=== PATIENT | female | born 1970 | race Caucasian/White ===

== ENCOUNTER 2019-03-11 17:22 | Emergency (ER) | payer OTHER ==
[~2019-03-11] VITALS: Ht 165.1 cm; Wt 59.0 kg
[2019-03-11] MEDS ORDERED: RASUVO 3030 MG/0.6 SUBQ (17:40)
[2019-03-11] MEDS ORDERED: FOLIC ACID1 MG PO (17:41)
[2019-03-11 18:12] LABS: ABSOLUTE BASOPHILS 0.1 thou/uL (0.0-0.2); ABSOLUTE EOSINOPHILS 0.2 thou/uL (0.0-0.7); ABSOLUTE LYMPHOCYTES 0.6 thou/uL (0.8-5.3); ABSOLUTE MONOCYTES 0.6 thou/uL (0.0-1.2); ABSOLUTE NEUTROPHILS 3.9 thou/uL (1.6-8.1); BASOPHILS 1.1 %; EOSINOPHILS 3.2 %; HEMATOCRIT 33.6 % (37.0-47.0); HEMOGLOBIN 11.4 gm/dL (12.0-15.0); LYMPHOCYTES 10.9 %; MCH 34.6 pg (26.0-34.0); MCV 101.8 fL (80.0-100.0); MONOCYTES 10.4 %; MPV 7.9 fl. (7.2-11.1); NUCLEATED RBCS 0 /100WBC; PLATELET COUNT* 128 thou/uL (150-400); POLYS 74.4 %; RDW-CV 16.1 % (10.5-14.5); WBC 5.3 thou/uL (4.0-11.0)
[2019-03-11 18:26] LABS: CALCIUM 8.8 mg/dL (8.5-10.1); CREATININE 0.5 mg/dL (0.6-1.3); POTASSIUM 3.5 mmol/L (3.5-5.1)
[2019-03-11 18:31] LABS: ALBUMIN 2.9 g/dL (3.4-5.0); TOTAL BILIRUBIN 0.6 mg/dL (<0.1-1.0)
[2019-03-11 21:20] VITALS: BP 149/102
--- NOTE | 2019-03-12 11:42 | EKG ---
[place] [address] ELECTROCARDIOGRAM REPORT Name: DAYLIN MORALES Room: [facility]#: [id number] Admission: 03/11/19 Attend Phys: Discharge: 03/11/19 Date of : 70 Report #: [id number] THIS REPORT FOR: //name// [facility] ED Test Date: 2019-03-11 Test Time: 17:51:50 Pat Name: DAYLIN MORALES Department: Room: Gender: F Coding Quality Analyst: : 1970 Requested By: Galdino Vences Order Number: [id number] MD: Jhonny Hooper Measurements Intervals [place] Rate: 109 P: 42 NE: 167 QRS: 92 QRSD: 84 T: 31 QT: 356 QTc: 480 Interpretive Statements Sinus tachycardia Borderline right axis deviation No previous ECG available for comparison Electronically Signed On 03-12-2019 11:42:41 REAM CUTTER by Jhonny Hooper [email or web address] <ELECTRONICALLY SIGNED> By: Nohemi Hooper MD, [facility] 03/12/19 1142 1751 1751 Nohemi Hooper MD, FACC /EPI
== END 2019-03-11 21:21 | disposition still patient (30) ==
LOC: M.ERS 17:22
PROVIDERS: Emergency Medicine Emergency Medical Services
DX: R07.0 Pain in throat (principal); R06.02 Shortness of breath; J45.909 Unspecified asthma, uncomplicated; M06.9 Rheumatoid arthritis, unspecified; M79.7 Fibromyalgia; F32.9 Major depressive disorder, single episode, unspecified; G62.9 Polyneuropathy, unspecified; F17.210 Nicotine dependence, cigarettes, uncomplicated; Z88.6 Allergy status to analgesic agent; Z88.8 Allergy status to other drugs, medicaments and biological substances

== ENCOUNTER 2019-08-08 17:07 | Emergency (ER) | payer OTHER ==
[~2019-08-08] VITALS: Ht 165.1 cm; Wt 68.0 kg
[~2019-08-08 17:07] MED LIST: FOLIC ACID1 MG PO; RASUVO 3030 MG/0.6 SUBQ
[2019-08-08 18:50] VITALS: BP 124/70
== END 2019-08-08 18:52 | disposition home or self-care (01) ==
LOC: M.ERS 17:07
DX: S00.83XA Contusion of other part of head, initial encounter (principal); M25.561 Pain in right knee; H11.33 Conjunctival hemorrhage, bilateral; M06.9 Rheumatoid arthritis, unspecified; M79.7 Fibromyalgia; G62.9 Polyneuropathy, unspecified; Z88.6 Allergy status to analgesic agent; Z88.8 Allergy status to other drugs, medicaments and biological substances; Y08.89XA Assault by other specified means, initial encounter; Y93.89 Activity, other specified; Y92.89 Other specified places as the place of occurrence of the external cause; Y99.8 Other external cause status